=== PATIENT | male | born 2005 | race Caucasian/White ===

== ENCOUNTER → 2024-08-09 07:40 | Outpatient (BNVA) | payer OTHER, SELFPAY | PROVIDERS: Visit Provider Registered Nurse | DX: H57.8A2 Foreign body sensation, left eye (principal) | CPT/HCPCS: 92002; 99202 ==

== ENCOUNTER → 2024-08-13 15:10 | Outpatient (BNVA) | payer OTHER, SELFPAY | PROVIDERS: Visit Provider Registered Nurse | DX: H57.8A2 Foreign body sensation, left eye (principal) | CPT/HCPCS: 99213 ==